=== PATIENT | male | born 1950 | race Two or more races ===

== ENCOUNTER → 2016-08-17 | Day surgery (SDC) | payer BC, MEDICARE ==
[~2016-08-17] VITALS: Ht 160 cm; Wt 76.2 kg
[~2016-08-17] MED LIST: ACTOS30 MG PO; ACTOS45 MG PO; ALPHAGAN P5 ML OPHTH; AMARYL4 MG PO; AMOXICILLIN500 MG PO; BUMETANIDE2 MG PO; CIPRO250 MG PO; COREG25 MG PO; HYGROTON25 MG PO; LASIX80 MG PO; LIPITOR20 MG PO; MEDROL4 M1 PO; NORCO 5-325 MG1 TAB PO; NORCO 5-325 TA1 EACH PO; NORVASC10 MG PO; TYLENOL325 MG PO; VITAMIN D-32000 UNIT PO; XANAX0.25 MG PO; [UNRECOGNIZED DRUG - OTHER] PO
[2016-08-17 09:35] LABS: ALBUMIN 3.7 gm/dL (3.5-5.0); ANION GAP 15.6 (10.0-19.0); CALCIUM 8.4 mg/dL (8.5-10.5); POTASSIUM 3.6 mMol/L (3.7-5.1); TOTAL BILIRUBIN 0.4 mg/dL (0.0-1.5); TOTAL PROTEIN 7.2 g/dL (6.0-8.4)
[2016-08-17 09:36] LABS: CREATININE 7.3 mg/dL (0.6-1.3)
== END | disposition disaster alternative care site (69) ==
LOC: GPOC 08-10 14:00 → GEND 06:59 → GPOC 14:00
PROVIDERS: Internal Medicine Gastroenterology
PROC: 0DBK8ZZ Excision of Ascending Colon, Via Natural or Artificial Opening Endoscopic (ICD-10-PCS; principal; 2016-08-17)
PROC: 0DBN8ZZ Excision of Sigmoid Colon, Via Natural or Artificial Opening Endoscopic (ICD-10-PCS; 2016-08-17)
PROC: 0DBM8ZZ Excision of Descending Colon, Via Natural or Artificial Opening Endoscopic (ICD-10-PCS; 2016-08-17)
PROC: 0DBL8ZZ Excision of Transverse Colon, Via Natural or Artificial Opening Endoscopic (ICD-10-PCS; 2016-08-17)
PROC: 0DBL8ZZ Excision of Transverse Colon, Via Natural or Artificial Opening Endoscopic (ICD-10-PCS; 2016-08-17)
DX: Z12.11 Encounter for screening for malignant neoplasm of colon (principal); D12.0 Benign neoplasm of cecum; D12.2 Benign neoplasm of ascending colon; D12.5 Benign neoplasm of sigmoid colon; D12.3 Benign neoplasm of transverse colon; D12.4 Benign neoplasm of descending colon; K57.30 Diverticulosis of large intestine without perforation or abscess without bleeding; I13.2 Hypertensive heart and chronic kidney disease with heart failure and with stage 5 chronic kidney disease, or end stage renal disease; E11.22 Type 2 diabetes mellitus with diabetic chronic kidney disease; N18.6 End stage renal disease; I50.9 Heart failure, unspecified; I51.7 Cardiomegaly; Z99.2 Dependence on renal dialysis
CPT/HCPCS: J2001; J7030

== ENCOUNTER → 2016-08-28 | Day surgery (SDC) | payer BC, MEDICARE ==
[~2016-08-28] VITALS: Ht 167.6 cm; Wt 74.0 kg
--- NOTE | ~2016-08-28 | OR ---
PATIENT'S NAME: GILDARDO [facility] AGE: 66 Y [address] ROOM: [place] [id number] [place]: [facility] [place] DATE: 08/28/2016 OR/Procedure Report DISCHARGE DATE: FAMILY PHYSICIAN: Richie Lopez MD ATTENDING PHYSICIAN: Lobo Mendez SURGEON: Lobo Mendez MD DIRECTOR INFORMATION SECURITY: Elizabeth Calero PA-C. DATE OF PROCEDURE: 08/28/2016 PREOPERATIVE DIAGNOSIS: Scrotal swelling with possible hernia. POSTOPERATIVE DIAGNOSIS: Right inguinal hernia. PROCEDURE: 1. Diagnostic laparoscopy with enterolysis. 2. Open right inguinal hernia repair. FINDINGS: On laparoscopy, there was a right inguinal hernia present, and we could not visualize the left abdominal wall easily as there were adhesions from the colon. In this area, enterolysis was performed in order to visualize this and no left inguinal hernia was present. ESTIMATED BLOOD LOSS: Less than 50 mL. COMPLICATIONS: None. INDICATIONS: The patient is a 66-year-old male, who is currently undergoing peritoneal dialysis. He was getting severe scrotal swelling. By examination, it was difficult to identify whether he had a unilateral or bilateral hernia and whether this was even clearly present, but with the severe edema, we made this assumption. Because of this, we discussed laparoscopy followed by an open repair if indicated. The risks, benefits, and alternatives were discussed with the patient, and he elected to proceed. DESCRIPTION OF PROCEDURE: The patient was taken to the operating room. He was placed supine, given IV sedation, subsequently intubated. His abdomen was prepped with ChloraPrep and sterilely draped. Local anesthetic was infiltrated just superior to the umbilicus. A transverse incision was created. The abdomen was elevated. Veress needle was inserted. Pneumoperitoneum was induced. Following this, a 5 mm trocar was inserted followed by insertion of the camera. There was no injury from initial trocar placement. The patient was placed in steep Trendelenburg. The right internal ring was easily identified, and a hernia was present in this area. In attempts at visualized in the left, we could not visualize this area due to adhesions. Because of this, a second 5 mm trocar was inserted. This was PATIENT'S NAME: GILDARDO [facility] AGE: 66 Y [address] ROOM: [place], [place] [address] LOCATION: [facility] [place]MIT DATE: 08/28/2016 OR/Procedure Report DISCHARGE DATE: FAMILY PHYSICIAN: Richie Lopez MD ATTENDING PHYSICIAN: Lobo Mendez inserted under direct visualization of the right abdomen. Laparoscopic scissors were then inserted. We lysed adhesions in order to identify the area of the external ring, and a hernia in this area was not present. The peritoneal dialysis catheter appeared to lie nicely in the pelvis. After this, the pneumoperitoneum was released. The trocars were removed. An incision was then created over the skin lines in the right groin, carried into subcutaneous tissues and through Jan's fascia using electrocautery. The aponeurosis of the external oblique was incised through the external ring. The cord was dissected around circumferentially at the pubic tubercle. A Bulan drain was placed to aid in retraction. A moderate-sized hernia sac was immediately evident. This was dissected around circumferentially up to the internal ring. High ligation was then performed. There was a moderate- sized cord lipoma which was also dissected from the cord and reduced. No significant direct defect was present. Large ProLoop mesh plug was placed into the indirect defect and secured using interrupted 2-0 Prolene suture. A polypropylene mesh patch was placed on the floor of the canal, secured to the pubic tubercle along the shelving edge of inguinal ligament using 2-0 Prolene suture. This was secured anteriorly and medially to the conjoined tendon using interrupted 2-0 Prolene suture. The mesh was loosely approximated around the cord. The operative field was inspected, it appeared hemostatic. The aponeurosis of the external oblique was reapproximated with 2-0 Vicryl suture, closure of Jan fascia with 3-0 Vicryl suture, and skin closed with 4-0 Monocryl suture. Steri-Strips and sterile dressings were placed. The patient was extubated and sent to Recovery in good condition. Elizabeth Calero was necessary for visualization and retraction and hemostasis throughout the entire case. LOBO MENDEZ MD BJO/modl /[id number] d: 08/28/162054 t: 09/05/168, OPERATIVE SUMMARY
[2016-08-28 10:15] LABS: ALBUMIN 3.6 gm/dL (3.5-5.0); CREATININE 4.2 mg/dL (0.6-1.3); TOTAL BILIRUBIN 0.4 mg/dL (0.0-1.5); TOTAL PROTEIN 7.1 g/dL (6.0-8.4)
== END | disposition disaster alternative care site (69) ==
LOC: GPOC 08-23 15:00 → GSDC 08:52
PROVIDERS: Surgery
PROC: 0YU50JZ Supplement Right Inguinal Region with Synthetic Substitute, Open Approach (ICD-10-PCS; principal; 2016-08-28)
DX: K40.90 Unilateral inguinal hernia, without obstruction or gangrene, not specified as recurrent (principal); I12.9 Hypertensive chronic kidney disease with stage 1 through stage 4 chronic kidney disease, or unspecified chronic kidney disease; E11.22 Type 2 diabetes mellitus with diabetic chronic kidney disease; N18.6 End stage renal disease; N17.8 Other acute kidney failure; D64.9 Anemia, unspecified; Z53.31 Laparoscopic surgical procedure converted to open procedure; Z87.891 Personal history of nicotine dependence; Z98.890 Other specified postprocedural states; Z79.899 Other long term (current) drug therapy
CPT/HCPCS: C1781; J0694; J1100; J2250; J2405; J7030